=== PATIENT | female | born 1960 | race African-American/Black ===

== ENCOUNTER 2018-07-25 11:21 | Emergency (ER) | payer MEDICAID ==
[2018-07-25 11:31] VITALS: BP 156/123
[2018-07-25] MEDS ORDERED: levoFLOXacin 250 MG TABLET PO STA (11:59)
--- NOTE | 2018-07-25 12:01 | ED Physician Documentation ---
History of Present Illness - Stated complaint Stated Complaint: RASH ON FOREHEAD - Chief complaint Chief Complaint: General - History obtained from History obtained from: Patient - History of Present Illness Timing: Today (58-year-old woman with no significant past medical history presents with a rash on her forehead that started today. Was preceded by a couple of days of chills, body aches, and fevers. Those are gone now but this rash which actually was present just a little bit yesterday is now much bigger today. It does not hurt to its more burning. It does cross the midline.) Review of Systems Constitutional: reports: Chills. denies: Fever Ears: denies: Ear pain Nose: denies: Rhinorrhea / runny nose, Congestion Throat: denies: Sore throat PD PAST MEDICAL HISTORY - Present Medications Home Medications: Ambulatory Orders Medication Instructions Recorded Confirmed Levofloxacin [Levaquin] 500 mg PO DAILY #7 tablet 07/25/18 - Allergies Allergies/Adverse Reactions: Allergies Allergy/AdvReac Type Severity Reaction Status Date / Time Penicillins Allergy Respiratory Verified 07/25/18 11:28 PD ED PE NORMAL - Vitals Vital signs reviewed: Yes - General General: Alert and oriented X 3, No acute distress - HEENT HEENT: PERRL, EOMI, Ears normal - Neuro Neuro: Alert and oriented X 3, Normal speech PD ED PE EXPANDED - HEENT HEENT Visual: 1 - rash (She has what appears to be a symmetric cellulitis, it significantly crosses the midline and is a little more on the left than the right but not consistent with shingles. It slightly raised.) Results - Vitals Vitals: Vital Signs - 24 hr 07/25/18 11:26 Temperature 36.9 C Heart Rate 103 H Respiratory 20 Rate Blood Pressure 156/123 H O2 Saturation 96 Oxygen O2 Source Room air PD MEDICAL DECISION MAKING - ED course ED course: 58-year-old woman with what appears to be a cellulitis of the forehead. It does cross the midline and is not consistent with shingles at this juncture. She has multiple antibiotic allergies and sensitivities but requests Levaquin as that has not given her any side effects in the past. - Sepsis Event Vital Signs: Vital Signs - 24 hr 07/25/18 11:26 Temperature 36.9 C Heart Rate 103 H Respiratory 20 Rate Blood Pressure 156/123 H O2 Saturation 96 Oxygen O2 Source Room air Departure - Departure Disposition: 01 Home, Self Care Clinical Impression: Cellulitis Qualifiers: Site of cellulitis: face Qualified Code(s): L03.211 - Cellulitis of face Condition: Good Record reviewed to determine appropriate education?: Yes Instructions: ED Cellulitis Facial Prescriptions: Levofloxacin [Levaquin] 500 mg PO DAILY #7 tablet Comments: Return anytime if worsening or if the fevers or chills come back. As discussed I would recommend taking a photograph of it daily to track the progression if it worsens for the next physician that sees you. At this point it does not appear consistent with shingles as it significantly crosses the midline and does not have the characteristic appearance. It does look more like cellulitis. Your blood pressure was elevated today on check into the emergency department. This does not mean that you have hypertension, it is a common phenomenon to come to the emergency department and have elevated blood pressure. I recommend that you see your primary care physician within the week to have it rechecked when you are feeling better.
== END 2018-07-25 12:06 | disposition home or self-care (01) ==
LOC: ED 11:21
DX: L03.211 Cellulitis of face (principal); R03.0 Elevated blood-pressure reading, without diagnosis of hypertension
CPT/HCPCS: 99283; A9270

== ENCOUNTER 2018-08-17 10:48 | Outpatient (CLI) | payer MEDICAID ==
[2018-08-17 18:09] LABS: ALBUMIN 3.9 g/dL (3.2-5.5); ALBUMIN/GLOBULIN RATIO 1.2 (1.0-2.2); ALKALINE PHOSPHATASE 61 IU/L (42-121); ALT ALANINE AMINOTRANSFERASE 17 IU/L (10-60); AST ASPARTATE AMINOTRANSFERASE 22 IU/L (10-42); BILIRUBIN,TOTAL 0.7 mg/dL (0.2-1.0); BUN - BLOOD UREA NITROGEN 13 mg/dL (6-20); CHOL/HDL RATIO 3.1 (<4.4); CHOLESTEROL 267 mg/dL; CREATININE 0.7 mg/dL (0.4-1.0); GFR - MDRD 104 (>89); HDL CHOLESTEROL 85 mg/dL; LDL CHOLESTEROL,CALCULATED 171 mg/dL; TOTAL PROTEIN 7.1 g/dL (6.7-8.2); VLDL CHOLESTEROL 11 mg/dL
[2018-08-17 18:17] LABS: CALCIUM 9.2 mg/dL (8.5-10.3); CARBON DIOXIDE - CO2 27 mmol/L (21-32); CHLORIDE 103 mmol/L (101-111); GLUCOSE 95 mg/dL (70-100); SODIUM 138 mmol/L (135-145)
== END 2018-08-17 10:49 | disposition home or self-care (01) ==
LOC: LAB.F 10:48
PROVIDERS: ATTEND Nurse Practitioner Family
DX: R03.0 Elevated blood-pressure reading, without diagnosis of hypertension (principal); Z13.6 Encounter for screening for cardiovascular disorders; Z13.29 Encounter for screening for other suspected endocrine disorder
CPT/HCPCS: 36415; 80053; 80061; 83721; 84443

== ENCOUNTER 2018-08-24 11:40 | Outpatient (CLI) | payer MEDICAID ==
[2018-08-24 17:40] LABS: BILIRUBIN,URINE NEGATIVE (NEGATIVE); GLUCOSE, URINE (UA) NEGATIVE (NEGATIVE); KETONES,URINE (UA) NEGATIVE (NEGATIVE); LEUKOCYTE ESTERASE, URINE NEGATIVE (NEGATIVE); NITRITE,URINE NEGATIVE (NEGATIVE); OCCULT BLOOD,URINE NEGATIVE (NEGATIVE); PROTEIN,URINE NEGATIVE (NEGATIVE); UROBILINOGEN,URINE 0.2 (NORMAL) E.U./dL (NORMAL)
[2018-08-24 17:53] LABS: BACTERIA,URINE None Seen /HPF (None Seen); CLARITY,URINE CLEAR (CLEAR); SQUAMOUS EPITHELIAL CELL,UR RARE Squamous (<= Few)
[2018-08-24 17:54] LABS: CRYSTALS,URINE 11-25 Ca Oxalate /LPF
== END 2018-08-24 11:41 | disposition home or self-care (01) ==
LOC: LAB.R 11:40
PROVIDERS: ATTEND Nurse Practitioner Family
DX: R39.15 Urgency of urination (principal)
CPT/HCPCS: 81001; 87086

== ENCOUNTER → 2018-08-27 | Outpatient (CLI) | payer MEDICAID ==
[2018-08-27 18:26] LABS: BILIRUBIN,URINE NEGATIVE (NEGATIVE); GLUCOSE, URINE (UA) NEGATIVE (NEGATIVE); KETONES,URINE (UA) NEGATIVE (NEGATIVE); LEUKOCYTE ESTERASE, URINE MODERATE (NEGATIVE); NITRITE,URINE POSITIVE (NEGATIVE); OCCULT BLOOD,URINE MODERATE (NEGATIVE); PROTEIN,URINE TRACE mg/dL (NEGATIVE); UROBILINOGEN,URINE 0.2 (NORMAL) E.U./dL (NORMAL)
[2018-08-27 18:57] LABS: BACTERIA,URINE None Seen /HPF (None Seen); CLARITY,URINE CLEAR (CLEAR); RBC,URINE 0-5 /HPF (0-5); SQUAMOUS EPITHELIAL CELL,UR FEW Squamous (<= Few)
[2018-08-27 18:58] LABS: CASTS, URINE 11-25 Hyaline Casts /LPF
== END ==
LOC: LAB.R 15:43
PROVIDERS: ATTEND Nurse Practitioner Family
DX: R39.15 Urgency of urination (principal)
CPT/HCPCS: 81001; 87086

== ENCOUNTER 2020-11-27 20:02 | Outpatient (CLI) | payer MEDICAID | END 2020-11-27 20:03 | disposition critical access hospital (66) | LOC: EMS 20:02 | PROVIDERS: ATTEND Emergency Medicine | DX: G81.94 Hemiplegia, unspecified affecting left nondominant side (principal) | CPT/HCPCS: A0425; A0429; A0999 ==

== ENCOUNTER 2020-11-27 20:44 | Inpatient (IN) | payer MEDICAID ==
--- NOTE | 2020-11-27 21:07 | ED Physician Documentation ---
PD HPI FOCAL NEURO - Stated complaint Stated Complaint: NUMBNESS L SIDE - Chief complaint Chief Complaint: Neuro - History obtained from History obtained from: Patient, EMS - History of Present Illness Timing - onset: Yesterday, Other (22:00) Timing - details: Gradual onset Severity of deficit: Mild Weakness: Left Numbness: Arm, Hand, Leg, Foot, Left Associated symptoms: Back pain (chronic). No: Headache, Fall, Chest pain, Neck pain Contributing factors: negative: Anticoagulated Baseline status: positive: A&OX3, ambulatory, indep Similar symptoms before: Has not had sx before Recently seen: Not recently seen - Additional information Additional information: BIBA. Patient says that last night she noticed LLE numbness and mild weakness; she had not had this before, but she has recurrent low back pain and she attributed her symptoms to being tied in with the back pain. This was approximately 10 PM last night. Upon waking up this morning, she noticed persistence of the LLE symptoms but she also noted LUE numbness (decreased sensation, not complete lack of sensation) as well as weakness of both LUE and LLE. She feels uncoordinated on her left side (walking, trying to hold and manipulate objects). The symptoms were not severe enough to prompt patient to seek medical attention but tonight she became concerned with the persistence of symptoms and thus called 911. She has not seen a doctor in many years. Review of Systems Constitutional: denies: Fever, Chills, Myalgias, Sweats Eyes: denies: Loss of vision, Decreased vision, Photophobia Cardiac: reports: Reviewed and negative Respiratory: reports: Reviewed and negative GI: reports: Reviewed and negative : denies: Dysuria, Frequency, Incontinent Skin: reports: Reviewed and negative Musculoskeletal: reports: Back pain. denies: Neck pain, Extremity pain, Joint pain, Extremity swelling, Joint swelling, Pain with weight bearing Neurologic: reports: Focal weakness (LUE, LLE), Numbness (LUE, LLE). denies: Difficulty speaking, Near syncope, Syncope, Altered mental status, Headache, Head injury, LOC PD PAST MEDICAL HISTORY - Past Medical History Past Medical History: No Other Past Medical History: has not seen a doctor in many years; unaware of any current medical problems/diagnoses - Past Surgical History Past Surgical History: No - Allergies Allergies/Adverse Reactions: Allergies Allergy/AdvReac Type Severity Reaction Status Date / Time acetaminophen [From Percocet] Allergy Hives Verified 11/28/20 02:55 Influenza Virus Vaccines Allergy Hives Verified 11/28/20 02:55 oxycodone [From Percocet] Allergy Hives Verified 11/28/20 02:55 Penicillins Allergy Respiratory Verified 11/27/20 21:04 Tetracyclines Allergy Hives Verified 11/28/20 02:55 - Living Situation Living Situation: reports: Alone Living Arrangement: reports: At home - Social History Does the pt smoke?: No Smoking Status: Never smoker PD ED PE NORMAL - Vitals Vital signs reviewed: Yes - General General: Alert and oriented X 3, No acute distress, Well developed/nourished - HEENT HEENT: PERRL, EOMI, Moist mucous membranes - Neck Neck: Supple, no meningeal sign, No bony TTP, No JVD - Cardiac Cardiac: RRR, No murmur, No gallop, No rub - Respiratory Respiratory: No respiratory distress, Clear bilaterally - Abdomen Abdomen: Soft, Non tender - Derm Derm: Normal color, Warm and dry - Extremities Extremities: No edema - Neuro Neuro: Alert and oriented X 3 Eye Opening: Spontaneous Motor: Obeys Commands Verbal: Oriented GCS Score: 15 NIHSS - Time Time: 21:00 - Level of Consciousness Level of consciousness: (0) Alert, Keenly responsive LOC Questions: (0) Answers both Q's correct LOC Commands: (0) Performs both correctly - Gaze Best Gaze: (0) Normal - Visual Visual: (0) No loss - Facial Palsy Facial Palsy: (0) Normal, symmetrical movement - Motor Arms (both separate) Motor Arm (right): (0) No drift Motor Arm (left): (0) No drift - Motor Legs (both separate) Motor Leg (right): (0) No drift Motor Leg (left): (1) Drift - Limb Ataxia Limb Ataxia: (1) Present in 1 limb - Sensory Sensory: (1) Oorq-ry-xtnpaprt loss - Best Language Best Language: (0) No aphasia - Dysarthria Dysarthria: (0) Normal - Extinction and Inattention (formally neg Extinction and inattention: (0) No abnormality - Total Score/Results Total Score/Result: 3 Results - Vitals Vitals: Vital Signs - 24 hr 0211/27/20 11/27/20 20:58 21:04 21:49 Temperature 37.5 C 37.5 C Heart Rate 103 H 103 H 95 Respiratory 21 21 18 Rate Blood Pressure 191/104 H 191/104 H 149/84 H O2 Saturation 98 98 98 11/27/20 11/27/20 11/27/20 22:39 23:03 23:50 Temperature Heart Rate 87 84 81 Respiratory 19 18 18 Rate Blood Pressure 144/90 H 167/103 H 101/70 O2 Saturation 97 98 98 11/28/20 00:03 Temperature Heart Rate 72 Respiratory 17 Rate Blood Pressure 153/89 H O2 Saturation 98 Oxygen O2 Source Room air - EKG (time done) No standard instances Rate: Rate (enter#) (98) Rhythm: NSR [place]: Normal Intervals: Normal HI, RBBB QRS: Normal Ischemia: Normal ST segments - Labs Labs: Laboratory Tests 11/27/20 11/27/20 11/27/20 21:32 21:32 21:59 WBC 6.4 RBC 4.66 Hgb 15.8 Hct 45.8 MCV 98.3 MCH 33.9 H MCHC 34.5 RDW 12.7 Plt Count 261 MPV 9.0 Neut # (Auto) 3.8 Lymph # (Auto) 1.7 [place] # (Auto) 0.6 Eos # (Auto) 0.1 Baso # (Auto) 0.1 Absolute Nucleated RBC 0.00 Nucleated RBC % 0.0 Sodium 140 Potassium 3.6 Chloride 103 Carbon Dioxide 21 Anion Gap 16.0 H BUN 13 Creatinine 0.7 Estimated GFR (MDRD) 103 Glucose 118 H Calcium 9.4 Total Bilirubin 0.4 AST 37 ALT 31 Alkaline Phosphatase 59 Total Protein 7.2 Albumin 4.3 Globulin 2.9 Albumin/Globulin Ratio 1.5 Lipase 47 Urine Color YELLOW Urine Clarity CLEAR Urine pH 6.0 Ur Specific [place] 1.010 Urine Protein NEGATIVE Urine Glucose (UA) NEGATIVE Urine Ketones NEGATIVE Urine Occult Blood NEGATIVE Urine Nitrite POSITIVE H Urine Bilirubin NEGATIVE Urine Urobilinogen 0.2 (NORMAL) Ur Leukocyte Esterase NEGATIVE Urine RBC 0-5 Urine WBC 0-3 Ur Squamous Epith Cells FEW Squamous Urine Bacteria Many H Ur Microscopic Review INDICATED Urine Culture Comments INDICATED - Rads (name of study) cxr Radiology: Prelim report reviewed, See rad report CTA head Radiology: Prelim report reviewed, See rad report CTA neck Radiology: Prelim report reviewed, See rad report PD MEDICAL DECISION MAKING - ED course Complexity details: reviewed results, re-evaluated patient, considered differential, d/w patient ED course: telestroke was not activated due to symptom onset approximately 24 hours [employer]. I subsequently consulted on-call neurologist for telestroke to discuss test results (specifically referring to the findings on CTA neck); he confirms that thrombolytics are not indicated due to time from symptom onset and no findings on tests to indicate emergent transfer is not indicated (no indication for consideration of clot retrieval), recommends admission and MRI in AM - TPA CVA checklist Inclusion crititeria: positive: Sig neuro deficit, CT no bleed. negative: Onset know < 4.5 hr Relative contraindications: positive: Too mild Departure - Departure Disposition: 66 [facility] DC/Xfer Clinical Impression: Cerebrovascular accident (CVA) Condition: Stable Discharge Date/Time: 11/28/20 01:35
[2020-11-27] MEDS ORDERED: IOVERSOL 320 100 ML VIAL IVP ONE ×2 (21:20→23:00)
[2020-11-27 21:38] LABS: BASOPHILS # (AUTO) 0.1 10^3/uL (0.0-0.1); BASOPHILS % (AUTO) 1.1 %; EOSINOPHILS # (AUTO) 0.1 10^3/uL (0.0-0.7); EOSINOPHILS % (AUTO) 2.2 %; HGB - HEMOGLOBIN 15.8 g/dL (12.0-16.0); LYMPHOCYTES # (AUTO) 1.7 10^3/uL (1.5-3.5); LYMPHOCYTES % (AUTO) 26.6 %; MEAN CORPUSCULAR HEMOGLOBIN 33.9 pg (27.0-31.0); MEAN CORPUSCULAR HGB CONC 34.5 g/dL (32.0-36.0); MEAN CORPUSCULAR VOLUME 98.3 fL (81.0-99.0); MONOCYTES # (AUTO) 0.6 10^3/uL (0.0-1.0); MONOCYTES % (AUTO) 9.9 %; NEUTROPHILS # (AUTO) 3.8 10^3/uL (1.5-6.6); NEUTROPHILS % (AUTO) 59.7 %; PLT - PLATELET COUNT 261 10^3/uL (130-450); RED BLOOD COUNT 4.66 10^6/uL (4.20-5.40); RED CELL DISTRIBUTION WIDTH 12.7 % (12.0-15.0); WHITE BLOOD COUNT 6.4 x10^3/uL (4.8-10.8)
[2020-11-27 21:53] LABS: ALBUMIN 4.3 g/dL (3.2-5.5); ALBUMIN/GLOBULIN RATIO 1.5 (1.0-2.2); BILIRUBIN,TOTAL 0.4 mg/dL (0.2-1.0); CALCIUM 9.4 mg/dL (8.5-10.3); CREATININE 0.7 mg/dL (0.4-1.0); TOTAL PROTEIN 7.2 g/dL (6.7-8.2)
[2020-11-27 22:30] LABS: BILIRUBIN,URINE NEGATIVE (NEGATIVE); GLUCOSE, URINE (UA) NEGATIVE (NEGATIVE); KETONES,URINE (UA) NEGATIVE (NEGATIVE); LEUKOCYTE ESTERASE, URINE NEGATIVE (NEGATIVE); NITRITE,URINE POSITIVE (NEGATIVE); OCCULT BLOOD,URINE NEGATIVE (NEGATIVE); PROTEIN,URINE NEGATIVE (NEGATIVE); UROBILINOGEN,URINE 0.2 (NORMAL) E.U./dL (NORMAL)
[2020-11-27 22:39] LABS: BACTERIA,URINE Many /HPF (None Seen); CLARITY,URINE CLEAR (CLEAR); RBC,URINE 0-5 /HPF (0-5); SQUAMOUS EPITHELIAL CELL,UR FEW Squamous (<= Few)
[2020-11-28] MEDS ORDERED: ONDANSETRON 4 MG/2 ML VIAL IVP PRN (00:20)
--- NOTE | 2020-11-28 00:59 | HISTORY & PHYSICAL EXAMINATION ---
DATE OF SERVICE: 11/27/2020 Physician: Shonna Honeycutt MD HISTORY OF PRESENT ILLNESS: This is a 60-year-old white female with a past history of hypertension and hyperlipidemia. She has not seen a PCP in about four years and has not stayed on BP and lipid meds during the last 4 years. She has a remote history of UTIs. The patient presents with complaint of decreased sensation of the left leg that started about 24 hours ago, which she thought may be related to episodes of low back pain that she gets and she ignored it. In the morning, she woke with left arm feeling of decreased sensation and continued left leg abnormality with decreased sensation and felt more uncoordinated when she was walking, especially noted this on the left side. With this, she came to the emergency room after approximately 22 hours of the first onset of symptoms. In the ER, the evaluation was consistent with slight decreased strength of the left arm, and abnormal wcmjho-rrfw-bgniyj test of the left arm, left leg drift and decreased sensation of both the left arm and the left leg, which gave her about a 3 on the stroke scale. She underwent a CTA of the head and neck. The brain findings did not show an acute stroke, but the neck vascular exam showed significant stenoses with severe stenosis of the right proximal carotid system and moderate stenosis of the left carotid system, as well as severe left vertebral stenosis. The ER doctor spoke to the Tele-stroke Neurologist, who confirmed that she was out of the window for acute stroke treatment since at this point, it was about 24 hours since first onset of symptoms. The Neurologist advised admitting her for managing completed stroke and working it up. She describes that she hit her left foot agains furniture when she was "uncoordinated in her walking" and hit the 3rd and 4th toes and now the 4th toe feels swollen and painful. PAST MEDICAL HISTORY: She states she has "psoriatic arthritis", previous hypertension and hyperlipidemia, but is on no prescription medications for several years after her PCP left the area. She also has a remote history of UTI. MEDICATIONS: None except OTC Aleve. ALLERGIES: PENICILLIN. SOCIAL HISTORY: She is a smoker of 1/2 to 1PPD. She drinks alcohol about 4 times a week, prefers vodka and has never gone through withdrawal. No illicit drug use history. She lives with her boyfriend. She works cleaning houses. FAMILY HISTORY: Her sister had a stroke and has vascular disease. REVIEW OF SYSTEMS: A comprehensive review of systems was performed and the pertinent positives are listed, the rest are negative. PHYSICAL EXAM GENERAL: White female in no distress. VITAL SIGNS: Blood pressure 153/89, heart rate of 70-80 in sinus rhythm, afebrile, and room air saturation 98%. HEENT: Unremarkable except mild hoarseness of voice. NECK: Without JVD or carotid bruits. CHEST: Clear. HEART: Normal heart sounds without murmurs. ABDOMEN: Soft, nontender. Normal bowel sounds. EXTREMITIES: No clubbing, cyanosis or leg edema. The left 4th toe is swollen and tender. NEUROLOGIC: Decreased strength of the left arm at 4/5 and the left leg at 4/5 and decreased sensation of the left arm and left leg. Face has no abnormalities. LABORATORY DATA: Normal electrolytes. Normal BUN and creatinine. Normal liver tests and lipase. CBC within normal limits entirely. No INR was done. Urinalysis shows positive nitrites, many bacteria, and culture is indicated. EKG: Normal sinus rhythm at a rate of 98, left atrial and right atrial enlargement, incomplete right bundle branch block, scooping ST segments with abnormal T waves in leads III and V6. There is no old EKG available for comparison. IMAGING: Imaging results not yet reported, but per the verbal report given to me by the ER doctor, her CTA imaging shows no acute brain findings, but significant carotid and vertebral stenoses are seen on the angio of the neck. IMPRESSION/DIAGNOSES: 1. Acute (completed) stroke; she is now approximately 26-1/2 hours out from last known well and continues to have neurologic deficit. 2. Peripheral vascular disease by virtue of significant stenoses seen on the CTA of the neck. 3. Bacteriuria, which may be asymptomatic since she has no white count or complaints of dysuria. 4. Abnormal EKG with findings of biatrial enlargement, incomplete right bundle branch block and nonspecific ST-T changes. 5. Tobacco user 6. Toe pain after trauma. PLAN: Admit the patient to the Hospitalist service. Start telemetry, watching for atrial fibrillation. Obtain brain MRI for detailed imaging. Obtain an Echo with bubble study to evaluate for source of clot or shunt and evaluate the abnormal EKG for any structural heart disease. Obtain a fasting lipid panel and treat per guidelines. Start one baby aspirin daily for antiplatelet agent. Order neuro checks every 4 hours. Start a cardiac diet. Looking back at remote labs, she had a total cholesterol of 276 and an LDL of 176 indicating poor lipid control, which is likely to still be present. A statin will likely need to be started. Obtain PT and OT evaluation and determine if she may be a candidate for transfer for inpatient stroke rehabilitation for aggressive management. The Neurologist said to the Er doctor that a vascular surgery evaluation needs to be done in the near future as an outpatient. Await the urine culture, which has been started by the lab, and consider IV antibiotics. Start Nicotine patch for urges and I discussed the importance of smoking cessation with her. XRays of the left foot and toes will be done to rule out a fracture. Treat that with Tylenol, ice and elevation. DEEP VENOUS THROMBOSIS PROPHYLAXIS: SCDs. CODE STATUS: FULL CODE. ATTESTATION: Patient is expected to be discharged or transferred to another facility within 96 hours: Yes. cc: LIAM Ba TD: 11/28/2020 00:39 [facility]
[2020-11-28 01:28] LABS: C. PNEUMONIAE- RESP PCR PANEL NOT DETECTED
[2020-11-28] MEDS: ACETAMINOPHEN 325 MG TABLET PO PRN ×2 (02:08→08:48)
[2020-11-28] MEDS: SODIUM CHLORIDE FLUSH 0.9% 10 ML SYRINGE IVP SCH ×3 (03:15→18:45)
[2020-11-28 04:54] LABS: BASOPHILS # (AUTO) 0.1 10^3/uL (0.0-0.1); BASOPHILS % (AUTO) 0.9 %; EOSINOPHILS # (AUTO) 0.1 10^3/uL (0.0-0.7); EOSINOPHILS % (AUTO) 2.4 %; HGB - HEMOGLOBIN 15.1 g/dL (12.0-16.0); LYMPHOCYTES # (AUTO) 1.6 10^3/uL (1.5-3.5); LYMPHOCYTES % (AUTO) 27.6 %; MEAN CORPUSCULAR HEMOGLOBIN 33.4 pg (27.0-31.0); MEAN CORPUSCULAR HGB CONC 33.9 g/dL (32.0-36.0); MEAN CORPUSCULAR VOLUME 98.7 fL (81.0-99.0); MEAN PLATELET VOLUME 9.5 fL (7.9-10.8); MONOCYTES # (AUTO) 0.8 10^3/uL (0.0-1.0); MONOCYTES % (AUTO) 13.2 %; NEUTROPHILS # (AUTO) 3.2 10^3/uL (1.5-6.6); NEUTROPHILS % (AUTO) 55.6 %; PLT - PLATELET COUNT 254 10^3/uL (130-450); RED BLOOD COUNT 4.52 10^6/uL (4.20-5.40); RED CELL DISTRIBUTION WIDTH 12.7 % (12.0-15.0); WHITE BLOOD COUNT 5.8 x10^3/uL (4.8-10.8)
[2020-11-28 06:25] LABS: ALBUMIN/GLOBULIN RATIO 1.5 (1.0-2.2); ALKALINE PHOSPHATASE 56 IU/L (42-121); ALT ALANINE AMINOTRANSFERASE 26 IU/L (10-60); AST ASPARTATE AMINOTRANSFERASE 36 IU/L (10-42); BILIRUBIN,TOTAL 0.7 mg/dL (0.2-1.0); BUN - BLOOD UREA NITROGEN 14 mg/dL (6-20); CALCIUM 9.4 mg/dL (8.5-10.3); CARBON DIOXIDE - CO2 22 mmol/L (21-32); CHLORIDE 103 mmol/L (101-111); CHOL/HDL RATIO 3.6 (<4.4); CHOLESTEROL 302 mg/dL; CREATININE 0.7 mg/dL (0.4-1.0); GLUCOSE 101 mg/dL (70-100); HDL CHOLESTEROL 83 mg/dL; LDL CHOLESTEROL,CALCULATED 201 mg/dL; LDL/HDL RATIO 2.4 (<4.4); MAGNESIUM 1.9 mg/dL (1.7-2.8); TOTAL PROTEIN 6.7 g/dL (6.7-8.2); VLDL CHOLESTEROL 18 mg/dL
[2020-11-28] MEDS ORDERED: diazePAM INJ 5 MG/ML SYRINGE IVP PRN (07:00)
--- NOTE | 2020-11-28 08:14 | CT Report ---
PROCEDURE: ANGIO HEAD W/WO INDICATIONS: L sided facial droop CONTRAST: IV CONTRAST: Optiray 320 ml: 80 PO CONTRAST: *NO PO CONTRAST TECHNIQUE: Precontrast 4.5 mm thick angled axial sections acquired from the foramen magnum to the vertex. Afte r the administration of intravenous contrast, 1 mm thick sections acquired through the [place] of [place] is. Postcontrast 4.5 mm thick sections then re-acquired from the foramen magnum to the vertex. 3-di mensional zzlwunh-mwzurkete-ynzbmtqyeg (MIP) and/or volume rendering reformats were acquired of the c entral intracranial vasculature. For radiation dose reduction, the following was used: automated ex posure control, adjustment of mA and/or kV according to patient size. COMPARISON: Correlation is made with the accompanying neck CT angiogram, 11/27/2020 FINDINGS: Image quality: Mildly limited by bolus timing, with venous contamination. Anterior circulation: Intracranial internal carotid arteries are normal in size and flow. The flow within the paired anterior cerebral arteries is normal and symmetric. The flow within the middle cer ebral arteries is normal and symmetric. The anterior communicating artery is seen. No aneurysms are seen. Posterior circulation: Visualized portions of the vertebral arteries demonstrate normal caliber, and join to form a normal appearing basilar artery. Flow within the posterior cerebral arteries is norm al and symmetric. No aneurysms are seen. CSF spaces: Ventricles are normal in size and shape. Basal cisterns are patent. No extra-axial flu id collections. Brain: No midline shift. No intracranial bleeds or masses. Allison-white matter interface appears int act. Skull and face: Calvarium and facial bones appear intact, without suspicious lesions. Sinuses: Visualized sinuses and mastoids are clear. IMPRESSION: No intracranial hemorrhage is seen. No significant intracranial abnormality is seen. No significant intracranial arterial abnormalities are seen. No masses or abnormal enhancement can be seen. Note: No significant discrepancy from the preliminary report. Reviewed by: Faraz Zamora MD on 11/28/2020 7:13 AM [facility] Approved by: Faraz Zamora MD on 11/28/2020 7:13 AM [facility] Station ID: [id number]
[2020-11-28] MEDS: FAMOTIDINE 20 MG TABLET PO SCH ×2 (08:36→20:46)
[2020-11-28] MEDS: ASPIRIN EC 81 MG TABLET PO SCH (08:36)
[2020-11-28] MEDS: NICOTINE 14 MG PATCH TOP SCH (08:37)
--- NOTE | 2020-11-28 08:54 | PHARMACY PROGRESS NOTE ---
- Best Possible Medication History Admit Date and Time: 11/28/20 0020 Processed by: Pharmacy Medication History completed: Yes Patient Interview: Completed Secondary Source(s): Physician records, Pharmacy records, Insurance records (PATIENT INTERVIEWED BY PHARMACY. PATIENT CONFIRMS SHE DOES NOT TAKE HOME MEDICATIONS ) As the person ultimately responsible for medication therapy, providers are able to order a medication from an existing home medication list in [facility] via the "Reconcile Routine" prior to Confirmation of that medication by shipping support. Such practice is discouraged except when the physician, in their clinical judgment, deems that a medical need exists for a medication without regard to previous use.
--- NOTE | 2020-11-28 09:40 | XRAY Report ---
PROCEDURE: Chest 2 View X-Ray INDICATIONS: CVA TECHNIQUE: 2 view(s) of the chest. COMPARISON: None. FINDINGS: Surgical changes and devices: None. Lungs and pleura: No pleural effusions or pneumothorax. Lungs are clear. Mediastinum: Mediastinal contours are normal. Heart size is normal. Bones and chest wall: No suspicious bony abnormalities. Age-appropriate degenerative changes are se en. Soft tissues appear unremarkable. IMPRESSION: Chest plain films within normal limits for age. Note: No significant discrepancy from the preliminary report. Reviewed by: Faraz Zamora MD on 11/28/2020 8:38 AM [facility] Approved by: Faraz Zamora MD on 11/28/2020 8:38 AM [facility] Station ID: [id number]
--- NOTE | 2020-11-28 09:43 | CT Report ---
PROCEDURE: ANGIO NECK W INDICATIONS: L sided facial droop, L neck pain CONTRAST: IV CONTRAST: Optiray 320 ml: 80 PO CONTRAST: *NO PO CONTRAST TECHNIQUE: After the administration of intravenous contrast, 1.5 mm axial sections acquired from the aortic arch to the [place] of [place]. Coronal 3-D maximum intensity projection (MIP) and/or volume rendering ref ormats were then performed. For radiation dose reduction, the following was used: automated exposur e control, adjustment of mA and/or kV according to patient size. COMPARISON: Correlation is made with the accompanying head CT angiogram, 11/27/2020. FINDINGS: Image quality: Excellent. Carotid system: The great vessels demonstrate a conventional anatomy as they arise from the aortic a rch. The origins of the common carotid arteries appear patent. The common carotid arteries demonstr ate normal calibers and courses. The bifurcation regions demonstrate atherosclerotic calcification a nd irregularity. There is impressive 50% narrowing seen involving the left proximal internal carotid artery and 70-80% narrowing involving the right proximal internal carotid artery. The more distal int ernal carotid arteries demonstrate normal course and caliber. Posterior circulation: The origin of the left vertebral artery is highly stenotic, 80-90%. No signif icant abnormality can be seen of the right vertebral artery origin. The more superior portions of the vertebral arteries demonstrate normal course and caliber. They join to form a normal appearing basi lar artery. Soft tissues: Visualized neck soft tissues demonstrate no suspicious abnormalities. The thyroid gla nd is normal in size. Bones: No suspicious bony lesions. Visualized cervical spine appears normally aligned. Age-approp riate degenerative changes are seen. IMPRESSION: There is 70-80% narrowing involving the right proximal internal carotid artery and approximately 50% narrowing involving the left proximal internal carotid artery. There is 80-90% stenosis involving the left vertebral artery origin. The estimate of stenosis included in the report of the imaging study was calculated using the NASCET method. Note: No significant discrepancy from the preliminary report. Reviewed by: Faraz Zamora MD on 11/28/2020 8:42 AM [facility] Approved by: Faraz Zamora MD on 11/28/2020 8:42 AM [facility] Station ID: [id number]
[2020-11-28] MEDS ORDERED: hydrALAZINE INJ 20 MG/ML VIAL IVP PRN (09:57)
--- NOTE | 2020-11-28 10:04 | XRAY Report ---
PROCEDURE: Toe(s) LT INDICATIONS: Trauma to Left 3rd 4th toes during fall TECHNIQUE: 3 views of the fourth toe(s) acquired. COMPARISON: None FINDINGS: Bones: There is a minimally displaced fracture involving the middle phalanx of the left fourth toe. I ntra-articular involvement can be seen. Age-appropriate degenerative changes are seen. No suspicious lytic or blastic lesions are seen. Soft tissues: No suspicious soft tissue densities. IMPRESSION: Minimally displaced, intra-articular fracture of the middle phalanx of the fourth toe. Note: No significant discrepancy from the preliminary report. Reviewed by: Faraz Zamora MD on 11/28/2020 9:03 AM [facility] Approved by: Faraz Zamora MD on 11/28/2020 9:03 AM [facility] Station ID: [id number]
[2020-11-28] MEDS: SODIUM CHLORIDE FLUSH 0.9% 10 ML SYRINGE IVP PRN (12:17)
--- NOTE | 2020-11-28 14:51 | MRI Report ---
PROCEDURE: Brain W/O INDICATIONS: R/O CVA TECHNIQUE: Noncontrast axial T1 spin echo, axial T2 fast spin echo, sagittal and axial FLAIR, coronal T2 fast sp in echo, axial gradient echo, axial diffusion and ADC through the brain. COMPARISON: CTA head 11/27/2020 FINDINGS: Image quality: Excellent. CSF Spaces: Basal cisterns are patent. No extra-axial fluid collections. Ventricles are normal in size and shape. Brain: A small focus of diffusion restriction is seen in the right thalamus, compatible with a recen t lacunar infarct. There is mild associated T2/FLAIR hyperintense signal without significant mass eff ect. A few scattered foci of T2/FLAIR hyperintense signal in the subcortical and periventricular whit e matter compatible with mild mitral vascular ischemic changes. No intracranial masses or hemorrhage. Normal intravascular flow voids are present. Skull and face: Calvarium has normal marrow signal. Orbits appear normal. Sinuses: Sinuses and mastoids are clear. IMPRESSION: 1. A small focus of diffusion restriction is seen in the right thalamus compatible with a recent smal l lacunar infarct. No mass effect or hemorrhagic conversion is seen. 2. Mild chronic microvascular ischemic changes. Reviewed by: Lux Robertson MD on 11/28/2020 2:49 PM PST Approved by: Lux Robertson MD on 11/28/2020 2:49 PM PST Station ID: [id number]
--- NOTE | 2020-11-28 19:45 | PROVIDER PROGRESS NOTE ---
Furniture Detailer Note - Furniture Detailer Note Furniture Detailer Note: The final report of the brain MRI DOES show a subacute stroke in the thalamus. The daytime Hospitalist did report this to her and advised to stop smoking, treatment for HTN and elevated LDL cholesterol, and dre take lifelong aspirin. Lipitor 80 mg po to start tonite. Will start BP med in a.m, tomorrow, using Norvasc 2.5 mg daily, since BP has been averaging 180's systolic and iv Hydralazine prn BP>180 had to be given today. The left foot and toes XRay final report DOES show a fractured 4th toe. Will do Jairo-wrap. The urine culture IS quickly growing a GNR. WBC is normal. Will watch for sx.
[2020-11-28] MEDS: ATORVASTATIN 40 MG TABLET PO SCH (20:46)
[2020-11-29] MEDS: ACETAMINOPHEN 325 MG TABLET PO PRN ×2 (00:32→05:36)
[2020-11-29] MEDS: SODIUM CHLORIDE FLUSH 0.9% 10 ML SYRINGE IVP SCH ×3 (00:32→17:21)
[2020-11-29 05:35] LABS: BASOPHILS # (AUTO) 0.1 10^3/uL (0.0-0.1); BASOPHILS % (AUTO) 0.9 %; EOSINOPHILS # (AUTO) 0.2 10^3/uL (0.0-0.7); EOSINOPHILS % (AUTO) 2.4 %; LYMPHOCYTES # (AUTO) 1.8 10^3/uL (1.5-3.5); LYMPHOCYTES % (AUTO) 26.5 %; MEAN CORPUSCULAR HEMOGLOBIN 33.1 pg (27.0-31.0); MEAN CORPUSCULAR HGB CONC 33.5 g/dL (32.0-36.0); MEAN CORPUSCULAR VOLUME 98.8 fL (81.0-99.0); MEAN PLATELET VOLUME 9.3 fL (7.9-10.8); MONOCYTES # (AUTO) 0.9 10^3/uL (0.0-1.0); MONOCYTES % (AUTO) 13.4 %; NEUTROPHILS # (AUTO) 3.8 10^3/uL (1.5-6.6); NEUTROPHILS % (AUTO) 56.7 %; PLT - PLATELET COUNT 248 10^3/uL (130-450); RED BLOOD COUNT 4.84 10^6/uL (4.20-5.40); RED CELL DISTRIBUTION WIDTH 12.4 % (12.0-15.0); WHITE BLOOD COUNT 6.7 x10^3/uL (4.8-10.8)
[2020-11-29 05:44] LABS: CALCIUM 9.6 mg/dL (8.5-10.3); CREATININE 0.8 mg/dL (0.4-1.0)
[2020-11-29] MEDS ORDERED: hydrALAZINE INJ 20 MG/ML VIAL IVP PRN (07:23)
--- NOTE | 2020-11-29 07:50 | PROVIDER PROGRESS NOTE ---
Assessment/Plan - Problem List (1) Cerebrovascular accident (CVA) Qualifiers: CVA mechanism: unspecified Qualified Code(s): I63.9 - Cerebral infarction, unspecified Assessment/Plan: MRI of the brain done on 11/28/2020 showed a small foci of diffusion restriction in the right thalamus compatible with a recent small lacunar infarct. No mass-effect or hemorrhagic conversion was seen. Mild chronic microvascular ischemic changes. Permissive hypertension was permitted for 24 hours. Hydralazine was ordered as needed for systolic blood pressure greater than 160. Labetalol 10 mg IV every 4 hours as needed ordered for systolic blood pressure greater than 160 Amlodipine 2.5 mg p.o. daily ordered. Will complete work-up with a 2D echocardiogram tomorrow 11/30/2020. Atorvastatin 80 mg p.o. nightly ordered. Baby aspirin daily. (2) Peripheral vascular disease Assessment/Plan: There was 70 to 80% narrowing involving the right proximal internal carotid artery. The origin of the left vertebral artery is highly stenosed at 80 to 90%. Will refer patient for an outpatient vascular surgery follow-up (3) Tobacco abuse Assessment/Plan: Patient advised to quit smoking. She expressed understanding. For now a nicotine patch has been administered. (4) Asymptomatic bacteriuria Assessment/Plan: Will not treat since patient is asymptomatic. (5) HTN (hypertension) Assessment/Plan: Patient was initially ordered amlodipine 2.5 mg. We will increase the dose of amlodipine to 5 mg p.o. daily starting on 11/30/20. Patient was ordered hydralazine 10 mg IV q4hrs as needed for systolic greater than 160. This was administered once however patient complained of feeling dizzy and jittery. We will discontinue hydralazine and order labetalol 10 mg IV every 4 hours as needed for systolic blood pressure gram 160 - Current Meds Current Meds: Current Medications Generic Name Dose Route Start Last Admin Trade Name Freq PRN Reason Stop Dose Admin Acetaminophen 650 mg 11/28/20 00:20 11/29/20 05:36 Acetaminophen 325 Mg Tablet PO 650 mg Q4HR PRN Administration Pain 1 to 4 Aspirin 81 mg 11/28/20 09:00 11/28/20 08:36 Aspirin Ec 81 Mg Tablet PO 81 mg DAILY LILIAN Administration Atorvastatin Calcium 80 mg 11/28/20 21:00 11/28/20 20:46 Atorvastatin 40 Mg Tablet PO 80 mg QPM LILIAN Administration Famotidine 20 mg 11/28/20 09:00 11/28/20 20:46 Famotidine 20 Mg Tablet PO 20 mg BID LILIAN Administration Nicotine 1 patch 11/28/20 09:00 11/28/20 08:37 Nicotine 14 Mg Patch TOP 1 patch DAILY LILIAN Administration Sodium Chloride 10 ml 11/28/20 00:20 11/28/20 12:17 Sodium Chloride Flush 0.9% 10 Ml Syringe IVP 10 ml PRN PRN Administration NEEDED PER PROVIDER ORDERS Sodium Chloride 10 ml 11/28/20 01:00 11/29/20 00:32 Sodium Chloride Flush 0.9% 10 Ml Syringe IVP 10 ml 0100,0900,1700 LILIAN Administration - Lab Result Fish Bone Diagrams: 11/29/20 05:25 11/29/20 05:25 - Additional Planning My Orders: My Active Orders 11/28/20 21:00 Atorvastatin [Lipitor] 80 mg PO QPM 11/29/20 07:23 hydrALAZINE INJ [Apresoline Inj] 10 mg IVP Q4H PRN 11/30/20 08:00 Dietary [Nutrition Consult] [CONS] Routine Subjective - Subjective Patient Reports: Other (Was awake, alert oriented X3 and comfortable at time of exam. She denied any complaints. Some numbness still exist. She is able to ambulate without any difficulty) Objective Vital Signs: Vital Signs - 24 hr 11/28/20 11/28/20 11/28/20 08:24 10:30 12:10 Temperature 36.6 C 36.3 C L Heart Rate [ 80 87 Brachial] Respiratory 16 16 Rate Blood Pressure [Left Brachial artery] Blood Pressure 180/107 H 149/105 H [Right Brachial artery] Blood Pressure 158/111 H [Sitting] O2 Saturation 96 94 11/28/20 11/28/20 11/29/20 16:40 20:12 00:45 Temperature 37.0 C 36.6 C 36.9 C Heart Rate [ 84 87 81 Brachial] Respiratory 16 16 18 Rate Blood Pressure [Left Brachial artery] Blood Pressure 170/98 H 180/105 H 174/115 H [Right Brachial artery] Blood Pressure [Sitting] O2 Saturation 94 94 97 11/29/20 11/29/20 00:47 05:00 Temperature 36.5 C Heart Rate [ 84 Brachial] Respiratory 17 Rate Blood Pressure 158/105 H 167/109 H [Left Brachial artery] Blood Pressure 159/131 H [Right Brachial artery] Blood Pressure [Sitting] O2 Saturation 95 Oxygen O2 Source Room air I&O (Last 24 Hrs): Intake and Output Totals x24h 11/27/20 11/28/20 11/29/20 23:59 23:59 23:59 Intake Total 350 Balance 350 General: Alert, Oriented x3, Cooperative, No acute distress, Mild distress HEENT: PERRLA, EOMI Neck: Supple, No JVD Neuro: Alert, Non Focal, Oriented Times 3 Cardiovascular: Regular rate, Normal S1, Normal S2 Respiratory: Chest non-tender, No respiratory distress, Breath sounds nml Abdomen: Normal bowel sounds, Soft Extremities: No clubbing, No cyanosis, No edema Skin: No rashes - Results Results: Laboratory Results WBC 6.7 x10^3/uL (4.8-10.8) 11/29/20 05:25 RBC 4.84 10^6/uL (4.20-5.40) 11/29/20 05:25 Hgb 16.0 g/dL (12.0-16.0) 11/29/20 05:25 Hct 47.8 % (37.0-47.0) H 11/29/20 05:25 MCV 98.8 fL (81.0-99.0) 11/29/20 05:25 MCH 33.1 pg (27.0-31.0) H 11/29/20 05:25 MCHC 33.5 g/dL (32.0-36.0) 11/29/20 05:25 RDW 12.4 % (12.0-15.0) 11/29/20 05:25 Plt Count 248 10^3/uL (130-450) 11/29/20 05:25 MPV 9.3 fL (7.9-10.8) 11/29/20 05:25 Neut # (Auto) 3.8 10^3/uL (1.5-6.6) 11/29/20 05:25 Lymph # (Auto) 1.8 10^3/uL (1.5-3.5) 11/29/20 05:25 [place] # (Auto) 0.9 10^3/uL (0.0-1.0) 11/29/20 05:25 Eos # (Auto) 0.2 10^3/uL (0.0-0.7) 11/29/20 05:25 Baso # (Auto) 0.1 10^3/uL (0.0-0.1) 11/29/20 05:25 Absolute Nucleated RBC 0.00 x10^3/uL 11/29/20 05:25 Nucleated RBC % 0.0 /100WBC 11/29/20 05:25 Sodium 136 mmol/L (135-145) 11/29/20 05:25 Potassium 4.1 mmol/L (3.5-5.0) 11/29/20 05:25 Chloride 100 mmol/L (101-111) L 11/29/20 05:25 Carbon Dioxide 25 mmol/L (21-32) 11/29/20 05:25 Anion Gap 11.0 (6-13) 11/29/20 05:25 BUN 13 mg/dL (6-20) 11/29/20 05:25 Creatinine 0.8 mg/dL (0.4-1.0) 11/29/20 05:25 Estimated GFR (MDRD) 89 (>89) 11/29/20 05:25 Glucose 104 mg/dL (70-100) H 11/29/20 05:25 Calcium 9.6 mg/dL (8.5-10.3) 11/29/20 05:25 Magnesium 1.9 mg/dL (1.7-2.8) 11/28/20 04:31 Total Bilirubin 0.7 mg/dL (0.2-1.0) 11/28/20 04:31 AST 36 IU/L (10-42) 11/28/20 04:31 ALT 26 IU/L (10-60) 11/28/20 04:31 Alkaline Phosphatase 56 IU/L (42-121) 11/28/20 04:31 Total Protein 6.7 g/dL (6.7-8.2) 11/28/20 04:31 Albumin 4.0 g/dL (3.2-5.5) 11/28/20 04:31 Globulin 2.7 g/dL (2.1-4.2) 11/28/20 04:31 Albumin/Globulin Ratio 1.5 (1.0-2.2) 11/28/20 04:31 Triglycerides 88 mg/dL (-149) 11/28/20 04:31 Cholesterol 302 mg/dL (-199) H 11/28/20 04:31 LDL Cholesterol, Calc 201 mg/dL (-129) H 11/28/20 04:31 VLDL Cholesterol 18 mg/dL 11/28/20 04:31 HDL Cholesterol 83 mg/dL (60-) 11/28/20 04:31 LDL/HDL Ratio 2.4 (<4.4) 11/28/20 04:31 Cholesterol/HDL Ratio 3.6 (<4.4) 11/28/20 04:31 Lipase 47 U/L (22-51) 11/27/20 21:32 TSH 4.30 uIU/mL (0.34-5.60) 11/28/20 04:31 Urine Color YELLOW 11/27/20 21:59 Urine Clarity CLEAR (CLEAR) 11/27/20 21:59 Urine pH 6.0 PH (5.0-7.5) 11/27/20 21:59 Ur Specific [place] 1.010 (1.002-1.030) 11/27/20 21:59 Urine Protein NEGATIVE mg/dL (NEGATIVE) 11/27/20 21:59 Urine Glucose (UA) NEGATIVE mg/dL (NEGATIVE) 11/27/20 21:59 Urine Ketones NEGATIVE mg/dL (NEGATIVE) 11/27/20 21:59 Urine Occult Blood NEGATIVE (NEGATIVE) 11/27/20 21:59 Urine Nitrite POSITIVE (NEGATIVE) H 11/27/20 21:59 Urine Bilirubin NEGATIVE (NEGATIVE) 11/27/20 21:59 Urine Urobilinogen 0.2 (NORMAL) E.U./dL (NORMAL) 11/27/20 21:59 Ur Leukocyte Esterase NEGATIVE (NEGATIVE) 11/27/20 21:59 Urine RBC 0-5 /HPF (0-5) 11/27/20 21:59 Urine WBC 0-3 /HPF (0-5) 11/27/20 21:59 Ur Squamous Epith Cells FEW Squamous (<= Few) 11/27/20 21:59 Urine Bacteria Many /HPF (None Seen) H 11/27/20 21:59 Ur Microscopic Review INDICATED 11/27/20 21:59 Urine Culture Comments INDICATED 11/27/20 21:59 Nasal Adenovirus (PCR) NOT DETECTED 11/28/20 00:36 Nasal B. parapertussis DNA (PCR) NOT DETECTED 11/28/20 00:36 Nasal Coronavir 229E PCR NOT DETECTED 11/28/20 00:36 Nasal Coronavir HKU1 PCR NOT DETECTED 11/28/20 00:36 Nasal Coronavir NL63 PCR NOT DETECTED 11/28/20 00:36 Nasal Coronavir OC43 PCR NOT DETECTED 11/28/20 00:36 Nasal Enterovir/Rhinovir PCR NOT DETECTED 11/28/20 00:36 Nasal Influenza B PCR NOT DETECTED 11/28/20 00:36 Nasal Influenza A PCR NOT DETECTED 11/28/20 00:36 Nasal Parainfluen 1 PCR NOT DETECTED 11/28/20 00:36 Nasal Parainfluen 2 PCR NOT DETECTED 11/28/20 00:36 Nasal Parainfluen 3 PCR NOT DETECTED 11/28/20 00:36 Nasal Parainfluen 4 PCR NOT DETECTED 11/28/20 00:36 Nasal RSV (PCR) NOT DETECTED 11/28/20 00:36 Nasal B.pertussis DNA PCR NOT DETECTED 11/28/20 00:36 Nasal C.pneumoniae (PCR) NOT DETECTED 11/28/20 00:36 [place] Human Metapneumo PCR NOT DETECTED 11/28/20 00:36 Nasal M.pneumoniae (PCR) NOT DETECTED 11/28/20 00:36 Nasal SARS-CoV-2 (PCR) NOT DETECTED 11/28/20 00:36 ABX Reporting Has patient been on IV antibiotics over the past 48 hours?: No
[2020-11-29] MEDS: NICOTINE 14 MG PATCH TOP SCH (08:19)
[2020-11-29] MEDS: FAMOTIDINE 20 MG TABLET PO SCH ×2 (08:19→21:04)
[2020-11-29] MEDS: ASPIRIN EC 81 MG TABLET PO SCH (08:19)
[2020-11-29] MEDS ORDERED: amLODIPine 5 MG TABLET PO SCH (09:00)
[2020-11-29] MEDS: LABETALOL 20 MG/4 ML SYRINGE IVP PRN ×2 (17:20→21:06)
[2020-11-29] MEDS ORDERED: LORazepam 2 MG/ML VIAL IVP PRN (20:34)
[2020-11-29] MEDS: ATORVASTATIN 40 MG TABLET PO SCH (21:04)
[2020-11-30] MEDS: SODIUM CHLORIDE FLUSH 0.9% 10 ML SYRINGE IVP SCH ×2 (00:33→08:25)
[2020-11-30] MEDS: SODIUM CHLORIDE FLUSH 0.9% 10 ML SYRINGE IVP PRN (00:33)
[2020-11-30 05:51] LABS: BASOPHILS # (AUTO) 0.1 10^3/uL (0.0-0.1); BASOPHILS % (AUTO) 0.7 %; EOSINOPHILS # (AUTO) 0.1 10^3/uL (0.0-0.7); EOSINOPHILS % (AUTO) 1.5 %; LYMPHOCYTES # (AUTO) 1.6 10^3/uL (1.5-3.5); LYMPHOCYTES % (AUTO) 22.2 %; MEAN CORPUSCULAR HEMOGLOBIN 33.1 pg (27.0-31.0); MEAN CORPUSCULAR HGB CONC 33.3 g/dL (32.0-36.0); MEAN CORPUSCULAR VOLUME 99.6 fL (81.0-99.0); MEAN PLATELET VOLUME 9.2 fL (7.9-10.8); MONOCYTES # (AUTO) 0.9 10^3/uL (0.0-1.0); MONOCYTES % (AUTO) 12.2 %; NEUTROPHILS # (AUTO) 4.6 10^3/uL (1.5-6.6); NEUTROPHILS % (AUTO) 63.1 %; PLT - PLATELET COUNT 252 10^3/uL (130-450); RED BLOOD COUNT 4.83 10^6/uL (4.20-5.40); RED CELL DISTRIBUTION WIDTH 12.8 % (12.0-15.0); WHITE BLOOD COUNT 7.2 x10^3/uL (4.8-10.8)
[2020-11-30 05:59] LABS: CALCIUM 9.5 mg/dL (8.5-10.3); CREATININE 0.9 mg/dL (0.4-1.0)
[2020-11-30] MEDS: ASPIRIN EC 81 MG TABLET PO SCH (08:25)
[2020-11-30] MEDS: FAMOTIDINE 20 MG TABLET PO SCH (08:25)
[2020-11-30] MEDS: NICOTINE 14 MG PATCH TOP SCH (08:25)
[2020-11-30] MEDS ORDERED: LABETALOL 20 MG/4 ML SYRINGE IVP PRN (08:54)
[2020-11-30] MEDS ORDERED: diltiaZEM CD 120 MG CAPSULE PO SCH (09:00)
[2020-11-30] MEDS ORDERED: amLODIPine 5 MG TABLET PO SCH (09:00)
[2020-11-30] MEDS ORDERED: THIAMINE 100 MG TABLET PO SCH (09:00)
[2020-11-30] MEDS ORDERED: PRENATAL VITAMIN TABLET PO SCH (09:00)
--- NOTE | 2020-11-30 12:11 | DISCHARGE SUMMARY ---
Discharge Summary Admit Date: 11/28/20 Discharge Date: 11/30/20 Discharging Provider: Pola Flood Code Status: Attempt Resuscitation Condition at Discharge: Stable Discharge Disposition: 01 Home, Self Care - DIAGNOSES Discharge Diagnoses with Status of Each Condition: CVA: Acute. Peripheral vascular disease: Chronic. patient to follow-up with vascular surgery. Tobacco abuse: Chronic. Patient advised to quit smoking Asymptomatic bacteriuria Hypertension: Chronic. Patient prescribed antihypertensive. Sinus tachycardia: Resolved - HPI History of Present Illness: 60-year-old female with medical history of hypertension hyperlipidemia who was not had a primary care physician about 4 years and has not been on any medications during this time. She also actively smokes. She presented to the ED with complaint of decreased sensation of her left leg which started about 24 hours ago. She thought it was related to episodes of low back pain that she normally experiences so she ignored it. In the morning she woke up with left arm feeling of decreased sensation and continued left leg abnormality with decreased sensation and felt more uncoordinated when she was walking. In the ED evaluation was consistent with slight decreased strength of the left arm and abnormal lvoahp-ci-flau test of the left arm. Left leg drift and decreased sensation of both the left arm and the left leg which gave her about a 3 on the stroke scale. She underwent a CTA of the neck and head. The brain findings did not show any acute stroke. Neck vascular exam showed significant stenosis with severe stenosis of the right proximal carotid system and moderate stenosis of the left carotid system. There was also severe left vertebral stenosis. The ED physician spoke to the telestroke neurologist who confirmed that she was out of the window for acute stroke treatment since at this point it was about 24 hours since first onset of symptoms. Neurologist advised admitting for managing completed stroke and working it up. Permissive hypertension was allowed for a little over 24 hours. Hydralazine was ordered as needed for systolic blood pressure greater than 180. The patient was administered hydralazine once but experienced significant tachycardia. At this point she had also been on amlodipine 2.5 mg p.o. daily. Amlodipine was switched to Cardizem CD 120 mg daily. Hydralazine was switched to labetalol 10 mg IV every 4 hours as needed for systolic blood pressure greater than 160 or diastolic greater than 100. On 11/28/20 she underwent an MRI of the brain which showed a small focus of diffusion restriction in the right thalamus compatible with a recent small lacunar infarct. There was no mass-effect or hemorrhagic conversion. Mild chronic microvascular ischemic changes were also noted. He had an echocardiogram done on 11/30/2020 which showed left ventricular size normal. Mild concentric left ventricular hypertrophy. Overall left ventricular systolic function is normal with an ejection fraction of 65 to 70%. There was normal diastole. There was no regional wall motion abnormality. The right ventricle is normal in size and function. There was no evidence of aortic stenosis. There was trace to mild aortic regurgitation. There was no mitral stenosis or mitral regurgitation. The patient was discharged home on diltiazem CD 120 mg p.o. daily Baby aspirin daily Atorvastatin 80 mg p.o. nightly Nicotine patch 14 mg. The patient was advised to quit smoking. The patient was advised to increase exercise and also to be conscious of her diet. She expressed understanding and was agreeable to comply. She was given a list of primary care physicians to contact so as to examination care. She would also need a referral for vascular surgery follow-up once she has established care with a primary care physician. The patient was discharged in stable condition. - ALLERGIES Allergies/Adverse Reactions: Allergies Allergy/AdvReac Type Severity Reaction Status Date / Time Influenza Virus Vaccines Allergy Hives Verified 11/28/20 02:55 oxycodone [From Percocet] Allergy Hives Verified 11/28/20 02:55 Penicillins Allergy Respiratory Verified 11/27/20 21:04 Tetracyclines Allergy Hives Verified 11/28/20 02:55 hydralazine AdvReac Diaphoresis Verified 11/29/20 22:00 - MEDICATIONS Home Medications: Ambulatory Orders Medication Instructions Recorded Confirmed Aspirin EC [Ecotrin] 81 mg PO DAILY #30 tab 11/30/20 Atorvastatin [Lipitor] 80 mg PO QPM 30 Days #30 tab 11/30/20 Nicotine 14 mg Patch [Nicoderm] 1 patch TOP DAILY 20 Days #20 patch 11/30/20 diltiaZEM CD [Cardizem Cd] 120 mg PO DAILY 30 Days #30 tab 11/30/20 - PHYSICAL EXAM AT DISCHARGE General Appearance: positive: No acute distress, Alert Eyes Bilateral: positive: PERRL, EOMI ENT: positive: No signs of dehydration Neck: positive: Thyroid nml, No JVD, Trachea midline Respiratory: positive: Chest non-tender, No respiratory distress, Breath sounds nml Cardiovascular: positive: Regular rate & rhythm, No murmur Abdomen: positive: Non-tender, No organomegaly, Nml bowel sounds, No distention Back: positive: Nml inspection Skin: positive: Color nml, No rash, Dry Extremities: positive: Non-tender, Full ROM, Nml appearance, No pedal edema Neurologic/Psychiatric: positive: Oriented x3, CN's nml (2-12), Motor nml, Sensation nml, Mood/affect nml - LABS Result Diagrams: 11/30/20 05:42 11/30/20 05:42 - FOLLOW UP Follow Up: With primary care physician once patient chooses 1 and establishes with them. - TIME SPENT Time Spent in Discharge (Minutes): 25
--- NOTE | 2020-11-30 12:22 | Discharge Plan ---
Discharge Plan Problem Reviewed?: Yes Disposition: Home, Self Care Condition: Stable Prescriptions: diltiaZEM CD [Cardizem Cd] 120 mg PO DAILY 30 Days #30 tab Aspirin EC [Ecotrin] 81 mg PO DAILY #30 tab Atorvastatin [Lipitor] 80 mg PO QPM 30 Days #30 tab Nicotine 14 mg Patch [Nicoderm] 1 patch TOP DAILY 20 Days #20 patch Diet: Cardiac Activity Restrictions: Activity as Tolerated Shower Restrictions: No Weight Bearing: Full Weight Health Concerns: You were admitted on 11/28/20 with complaint of decreased sensation of the left leg which has started about 24 hours before. The following day the decreased sensation seemed to have progressed to your left arm. Work-up included a CT and CT angio of your head and neck. The CT angio of your neck showed that you had 80 to 90% stenosis/blockage of your left vertebral artery. You had 70 to 80% narrowing involving the right proximal internal carotid artery. You had 50% narrowing involving the left proximal internal carotid artery. You also had an MRI of your brain which showed that you had a Stroke due to a recent small lacunar infarct on the right. You are being discharged home on blood pressure medication called diltiazem CD (Cardizem) 120 mg p.o. daily You also take a cholesterol medication by name atorvastatin 80 mg p.o. nightly. You are also expected to take a baby aspirin daily indefinitely. You have been advised to quit smoking (you will be sent home with some nicotine patch orders), increase your activity/exercise and make healthier choices with your diet. You were given a list of primary care physicians and you are expected to make an appointment to establish with a doctor. The customer support coordinator helped with the process. Your primary care physician is expected to do a referral to a vascular surgeon regarding the stenosis or narrowing of the neck vessels as reported on the CT scan angiogram of your neck. Stressed understanding to all of the above and was agreeable with the plan. Plan of Treatment: You were admitted on 11/28/20 with complaint of decreased sensation of the left leg which has started about 24 hours before. The following day the decreased sensation seemed to have progressed to your left arm. Work-up included a CT and CT angio of your head and neck. The CT angio of your neck showed that you had 80 to 90% stenosis/blockage of your left vertebral artery. You had 70 to 80% narrowing involving the right proximal internal carotid artery. You had 50% narrowing involving the left proximal internal carotid artery. You also had an MRI of your brain which showed that you had a Stroke due to a recent small lacunar infarct on the right. You are being discharged home on blood pressure medication called diltiazem CD (Cardizem) 120 mg p.o. daily You also take a cholesterol medication by name atorvastatin 80 mg p.o. nightly. You are also expected to take a baby aspirin daily indefinitely. You have been advised to quit smoking (you will be sent home with some nicotine patch orders), increase your activity/exercise and make healthier choices with your diet. You were given a list of primary care physicians and you are expected to make an appointment to establish with a doctor. The customer support coordinator helped with the process. Your primary care physician is expected to do a referral to a vascular surgeon regarding the stenosis or narrowing of the neck vessels as reported on the CT scan angiogram of your neck. Stressed understanding to all of the above and was agreeable with the plan. Care Goals: You were admitted on 11/28/20 with complaint of decreased sensation of the left leg which has started about 24 hours before. The following day the decreased sensation seemed to have progressed to your left arm. Work-up included a CT and CT angio of your head and neck. The CT angio of your neck showed that you had 80 to 90% stenosis/blockage of your left vertebral artery. You had 70 to 80% narrowing involving the right proximal internal carotid artery. You had 50% narrowing involving the left proximal internal carotid artery. You also had an MRI of your brain which showed that you had a Stroke due to a recent small lacunar infarct on the right. You are being discharged home on blood pressure medication called diltiazem CD (Cardizem) 120 mg p.o. daily You also take a cholesterol medication by name atorvastatin 80 mg p.o. nightly. You are also expected to take a baby aspirin daily indefinitely. You have been advised to quit smoking (you will be sent home with some nicotine patch orders), increase your activity/exercise and make healthier choices with your diet. You were given a list of primary care physicians and you are expected to make an appointment to establish with a doctor. The customer support coordinator helped with the process. Your primary care physician is expected to do a referral to a vascular surgeon regarding the stenosis or narrowing of the neck vessels as reported on the CT scan angiogram of your neck. Stressed understanding to all of the above and was agreeable with the plan. Assessment: You were admitted on 11/28/20 with complaint of decreased sensation of the left leg which has started about 24 hours before. The following day the decreased sensation seemed to have progressed to your left arm. Work-up included a CT and CT angio of your head and neck. The CT angio of your neck showed that you had 80 to 90% stenosis/blockage of your left vertebral artery. You had 70 to 80% narrowing involving the right proximal internal carotid artery. You had 50% narrowing involving the left proximal internal carotid artery. You also had an MRI of your brain which showed that you had a Stroke due to a recent small lacunar infarct on the right. You are being discharged home on blood pressure medication called diltiazem CD (Cardizem) 120 mg p.o. daily You also take a cholesterol medication by name atorvastatin 80 mg p.o. nightly. You are also expected to take a baby aspirin daily indefinitely. You have been advised to quit smoking (you will be sent home with some nicotine patch orders), increase your activity/exercise and make healthier choices with your diet. You were given a list of primary care physicians and you are expected to make an appointment to establish with a doctor. The customer support coordinator helped with the process. Your primary care physician is expected to do a referral to a vascular surgeon regarding the stenosis or narrowing of the neck vessels as reported on the CT scan angiogram of your neck. Stressed understanding to all of the above and was agreeable with the plan. No Smoking: If you smoke, Please STOP! Call for help.
[2020-11-30 13:02] VITALS: BP 138/89
== END 2020-11-30 14:00 | disposition home or self-care (01) | DRG 65 ==
LOC: EDUNIT# → ED 20:44 → MS2 11-28 00:20
PROVIDERS: ADMIT Internal Medicine; ATTEND Internal Medicine
DX: I63.9 Cerebral infarction, unspecified (principal); G81.94 Hemiplegia, unspecified affecting left nondominant side; R20.0 Anesthesia of skin; R53.1 Weakness; M54.9 Dorsalgia, unspecified; R26.0 Ataxic gait; I10 Essential (primary) hypertension; R29.703 NIHSS score 3; E78.5 Hyperlipidemia, unspecified; L40.50 Arthropathic psoriasis, unspecified; F17.210 Nicotine dependence, cigarettes, uncomplicated; I73.9 Peripheral vascular disease, unspecified; I65.23 Occlusion and stenosis of bilateral carotid arteries; R82.71 Bacteriuria; R00.0 Tachycardia, unspecified; S92.522A Displaced fracture of middle phalanx of left lesser toe(s), initial encounter for closed fracture; W22.03XA Walked into furniture, initial encounter; Y92.9 Unspecified place or not applicable; I45.19 Other right bundle-branch block; I65.02 Occlusion and stenosis of left vertebral artery
CPT/HCPCS: 0202U; 36415; 70496; 70498; 70551; 71046; 73660; 80048; 80053; 80061; 81001; 83690; 83735; 84443; 85025; 87086; 87181; 93005; 93306; 97110; 97161; 97165; 99284; 99285; A9270; J2060; Q9967; 81003; 83721

== ENCOUNTER 2021-08-17 10:09 | Outpatient (CLI) | payer MEDICAID ==
[2021-08-17 14:20] LABS: BASOPHILS # (AUTO) 0.1 10^3/uL (0.0-0.1); BASOPHILS % (AUTO) 0.7 %; EOSINOPHILS # (AUTO) 0.2 10^3/uL (0.0-0.7); EOSINOPHILS % (AUTO) 2.4 %; HGB - HEMOGLOBIN 16.5 g/dL (12.0-16.0); LYMPHOCYTES # (AUTO) 2.1 10^3/uL (1.5-3.5); MEAN CORPUSCULAR HEMOGLOBIN 35.2 pg (27.0-31.0); MEAN CORPUSCULAR HGB CONC 34.4 g/dL (32.0-36.0); MEAN CORPUSCULAR VOLUME 102.3 fL (81.0-99.0); MEAN PLATELET VOLUME 9.5 fL (7.9-10.8); MONOCYTES # (AUTO) 0.8 10^3/uL (0.0-1.0); NEUTROPHILS # (AUTO) 4.9 10^3/uL (1.5-6.6); NEUTROPHILS % (AUTO) 60.4 %; PLT - PLATELET COUNT 343 10^3/uL (130-450); RED BLOOD COUNT 4.69 10^6/uL (4.20-5.40); WHITE BLOOD COUNT 8.1 x10^3/uL (4.8-10.8)
[2021-08-17 15:07] LABS: ALBUMIN 4.6 g/dL (3.2-5.5); ALBUMIN/GLOBULIN RATIO 1.5 (1.0-2.2); ALKALINE PHOSPHATASE 60 IU/L (42-121); ALT ALANINE AMINOTRANSFERASE 24 IU/L (10-60); AST ASPARTATE AMINOTRANSFERASE 27 IU/L (10-42); BILIRUBIN,TOTAL 0.9 mg/dL (0.2-1.0); BUN - BLOOD UREA NITROGEN 11 mg/dL (6-20); CALCIUM 9.9 mg/dL (8.5-10.3); CARBON DIOXIDE - CO2 25 mmol/L (21-32); CHLORIDE 103 mmol/L (101-111); CHOL/HDL RATIO 4.3 (<4.4); CHOLESTEROL 338 mg/dL; CREATININE 0.8 mg/dL (0.4-1.0); GFR - MDRD 88 (>89); GLUCOSE 96 mg/dL (70-100); HDL CHOLESTEROL 78 mg/dL; LDL CHOLESTEROL,CALCULATED 234 mg/dL; POTASSIUM 4.4 mmol/L (3.5-5.0); SODIUM 138 mmol/L (135-145); TOTAL PROTEIN 7.7 g/dL (6.7-8.2); TRIGLYCERIDES 131 mg/dL; VLDL CHOLESTEROL 26 mg/dL
== END 2021-08-17 10:10 | disposition home or self-care (01) ==
LOC: LAB.S 10:09
PROVIDERS: ATTEND Internal Medicine
DX: I10 Essential (primary) hypertension (principal); E78.5 Hyperlipidemia, unspecified
CPT/HCPCS: 36415; 80053; 80061; 83721; 85025

== ENCOUNTER 2022-04-13 21:38 | Outpatient (CLI) | payer MEDICAID | END 2022-04-13 21:39 | disposition EMS.NT | LOC: EMS 21:38 | DX: F32.A Depression, unspecified (principal) ==